=== PATIENT | female | born 1970 | race American Indian/Alaskan Native ===

== ENCOUNTER 2017-02-25 09:28 | Emergency (ER) | payer OTHER ==
[2017-02-25] MEDS ORDERED: Sodium Chloride 0.9% 1,000 ML IV STA (09:35)
--- NOTE | 2017-02-25 09:37 | ED PDOC ---
Arrival/HPI - General Time Seen by Provider: 02/25/17 09:31 - History of Present Illness Narrative History of Present Illness (Text): 47 y/o F c PMHx DM p/w syncope just prior to ED arrival. 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 States she had eaten and drank normally today and had taken her DM medication. Classmate went to get professor and upon his return, patient was slumped over on table unresponsive. Rapid response team was called and brought patient down to ED for further evaluation. Patient drowsy but awake upon ED arrival. Patient denies chest pain or shortness of breath. Full ROS/HPI unobtainable due to patient condition. Family/Social History Family/Social History: No Known Family HX Allergies/Home Meds Allergies/Adverse Reactions: Allergies Penicillins Allergy (Verified 02/25/17 09:33) Home Medications: Home Meds Medication Instructions Recorded Confirmed Glipizide [Glipizide ER] 10 mg PO DAILY 02/25/17 02/25/17 Lisinopril [Zestril] 10 mg PO DAILY 02/25/17 02/25/17 Metoprolol Succinate [Metoprolol 100 mg PO DAILY 02/25/17 02/25/17 Succinate] amLODIPine [Norvasc] 5 mg PO DAILY 02/25/17 02/25/17 metFORMIN [glucOPHAGE] 500 mg PO BID 02/25/17 02/25/17 Review of Systems - Review of Systems Systems not reviewed;Unavailable: Altered Mental Status Physical Exam - Physical Exam Narrative Physical Exam (Text): Constitutional: No acute distress. Drowsy. Head: Normocephalic. Atraumatic. Eyes: PERRL. ENT: Moist mucous membranes. Neck: Supple. Cardiovascular: Regular rate. Chest: No tenderness. Respiratory: Clear to auscultation bilaterally. GI: Soft. Nontender. Nondistended. Back: No CVA tenderness. Musculoskeletal: No tenderness or swelling of extremities. Skin: No rash. Neurologic: Alert, no focal deficit. Vital Signs Temp Pulse Resp BP Pulse Ox 02/25/17 14:21 98.0 F 74 18 140/74 97 02/25/17 09:34 98 F 87 16 157/99 H 100 Medical Decision Making ED Course and Treatment: Fingerstick 420. Impression: 47 y/o F c uncontrolled DM p/w syncope. Will evaluate for DKA, arrhythmia, ischemia, dehydration. EKG NSR 90 bpm, PVCs, no ST elevations 02/25/17 10:18 Patient much more awake and alert. States has had UTI symptoms for last week, not on medication. She also states the dizziness she was having prior to syncope was like a spinning sensation. FTN, HTS normal. Reproducible vertigo with [place] Hallpike maneuver. L TM cerumen obstructing. R TM appears normal. No nystagmus. On reassessment, patient in no distress, would like to go home. No symptoms at this time. I recommended further observation, but patient declined. - Lab Interpretations Lab Results: 02/25/17 09:30 02/25/17 09:30 Lab Results 02/25/17 10:06: Urine Color Yellow, Urine Appearance Clear, Urine pH 6.0, Ur Specific [place] 1.010, Urine Protein Negative, Urine Glucose (UA) >=1000, Urine Ketones Negative, Urine Blood Negative, Urine Nitrate Negative, Urine Bilirubin Negative, Urine Urobilinogen 0.2, Ur Leukocyte Esterase Negative, Urine HCG, Qual Negative 02/25/17 09:30: pO2 54, VBG pH 7.33, VBG pCO2 54.0, VBG HCO3 28.5 H, VBG O2 Sat (Calc) 90.4 H, VBG Base Excess 1.5 02/25/17 09:30: Sodium 130 L, Potassium 4.4, Chloride 95 L, Carbon Dioxide 29, Anion Gap 11, BUN 12, Creatinine 0.8, Est GFR ( Amer) > 60, Est GFR (Non- Af Amer) > 60, Random Glucose 435 H*, Calcium 9.7, Total Bilirubin 0.5, AST 25, ALT 38, Alkaline Phosphatase 97, Total Creatine Kinase 209, Troponin I < 0.01, Total Protein 6.7, Albumin 3.8, Globulin 2.9, Albumin/Globulin Ratio 1.3, Lipase 174 02/25/17 09:30: WBC 5.5, RBC 4.42, Hgb 11.8 L, Hct 35.6 L, MCV 80.5, MCH 26.7, MCHC 33.1, RDW 14.1, Plt Count 287, MPV 10.7, Gran % 53.3, Lymph % (Auto) 38.9 H , [place] % (Auto) 5.6, Eos % (Auto) 2.0, Baso % (Auto) 0.2, Gran # 2.95, Lymph # 2.2, [place] # 0.3, Eos # 0.1, Baso # 0.01 - RAD Interpretation Radiology Orders: 02/25/17 09:35 CHEST PORTABLE [RAD] Stat - Medication Orders Current Medication Orders: Discontinued Medications Sodium Chloride (Sodium Chloride 0.9%) 1,000 mls @ 999 mls/hr IV .Q1H1M STA Stop: 02/25/17 10:35 Last Admin: 02/25/17 09:56 Dose: 999 mls/hr eMAR Start Stop Document 02/25/17 09:56 KK (Rec: 02/25/17 09:56 KK [id number]) Intravenous Solution Start Date 02/25/17 Start Time 09:30 Meclizine HCl (Antivert) 25 mg PO STAT STA Stop: 02/25/17 11:38 Last Admin: 02/25/17 11:54 Dose: 25 mg Disposition/Present on Arrival - Present on Arrival Any Indicators Present on Arrival: No - Disposition Have Diagnosis and Disposition been Completed?: Yes Diagnosis: Syncope, Vertigo, PVC (premature ventricular contraction) Disposition: AGAINST MEDICAL ADVICE Disposition Time: 12:06 Condition: STABLE Discharge Instructions (ExitCare): Syncope (ED), Benign Paroxysmal Positional Vertigo (ED), Premature Ventricular Contractions (ED) [facility] - Follow up with primary Forms: [employer] (Croatian) Against Medical Advice - AMA Patient Left Against Medical Advice: The patient declines admission to the hospital and wishes to leave the Emergency Department. This action is against my medical advice. This decision was made with informed refusal. The patient was told that admission to the hospital is necessary. Explanation of the reasons why were discussed. The risks of leaving were explained to the patient and include, but are not limited to, worsening of known or currently unknown conditions, permanent disability and from undiagnosed or untreated conditions. The patient has the capacity to make this informed decision and understands my explanation of the current medical problem and risks of leaving. The patient voluntarily accepts these risks and signed an AMA form documenting our conversation. The patient was given the opportunity to ask questions and reconsider. The patient was encouraged to return to the Emergency Department at any time for further care.
--- NOTE | 2017-02-25 09:43 | PCM.RRT ---
<Toni Raya - Last Filed: 02/25/17 09:50> [employer] Nurse Assessment - Situation Date: 02/25/17 Time [employer] was called: 09:13 [employer] Responder Arrival Time: 09:14 [employer] Location:: [address] [place] [address] [employer] Reason for Call: Change in Mental Status [employer] Called By: RN - IV IV Inserted during [employer]?: No - Respiratory Oxygen Delivery Method: Room Air Received Nebulizer Treatments:: No Was the Patient Ventilated with Bag/Mask 100% O2?: No Secretions Suctioned?: No Was the Patient Intubated?: No Was the Patient Placed on a Ventilator?: No - Diagnostic Test Ordered EKG: No (Deferred to ED) Chest X-Ray: No (Deferred to ED) CT Scan: No (Deferred to ED) CPR started during [employer]?: No - Vital Signs Vital Sign: BP: 175/114 HR: 95 O2 Sat: 99% - Jessica Coma Scale Coma Scale Eye Opening: To verbal stimuli Coma Scale Motor: Withdraw response to pain Coma Scale Verbal: No response - Vital Signs at end of [employer] Vital Signs at end of [employer]: Deferred to ED - Recommendations 5) [employer] Level of Care Recommendations: Discharge to Emergency Room Notifications: Attending Physician I.Reason for [employer] - A) Acute Change in Patient: (Select all that apply): Acute change in mental status - Neurological Status (Select all that apply): Lethargic, Weakness - Respiratory Oxygen Delivery Method: Room Air - Constitutional Appears: No Acute Distress - Head Head Exam: ATRAUMATIC, NORMOCEPHALIC - Eyes Eye Exam: PERRL - Respiratory Exam Respiratory Exam: Clear to Ausculation Bilateral. absent: Rales, Wheezes - Cardiovascular Exam Cardiovascular Exam: REGULAR RHYTHM, RRR, +S1, +S2 - GI/Abdominal Exam GI & Abdominal Exam: Soft, Normal Bowel Sounds. absent: Tenderness - Neurological Exam Neurological Exam: Alert, Altered - Extremities Exam Extremities Exam: absent: Calf Tenderness, Pedal Edema Plan - Assessment of Findings&Treatment Plan [employer] Called: 9:13am Pt was seen and examined on [address] [place] [address]. Pt was found on the chair leaning on a table unresponsive not obeying any commands. 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 Pt does have a history of diabetes. As per nurses pt did not fall or hit her head. ROS unobtainable. Pt was hemodynamically stable. Blood sugar of >400. Pt was transferred to a bed/stretcher and sent to the ED. Pt started opening her eyes and becoming more arousable. She was signed out to Dr LOPEZ and nursing staff in the ED for full workup - Blood work and Imaging. Will follow up. [facility] PGY-2 <Jordan Kaplan - Last Filed: 02/25/17 16:30> Attending/Attestation - Attestation I have personally seen and examined this patient.: Yes I have fully participated in the care of the patient.: Yes I have reviewed all pertinent clinical information, including history, physical exam and plan: Yes Notes (Text): 02/25/17 16:28 Attending note; Patient was seen in the 5 th floor after rapid response was called. Patient was feeling dizzy initially and then passed out briefly. Patient's blood sugar was over 400. Blood pressure was 144/80. Patient is alert and awake but lethargic. Able to nod her head with yes or No Answer. Moving all the extremities. The patient was transferred to the ER. Case endorsed to ER attending. Further workup per ER. Resident accompanied the patient to the ER. Currently stable vitals.
[2017-02-25 09:49] LABS: BASO # 0.01 K/mm3 (0.0-2.0); BASO % 0.2 % (0.0-3.0); EOS # 0.1 (0.0-0.7); GRAN # 2.95 (1.4-6.5); GRAN % 53.3 % (50.0-68.0); HEMATOCRIT 35.6 % (36.0-48.0); LYMPH # 2.2 (1.2-3.4); LYMPH % 38.9 % (22.0-35.0); MEAN CELL VOLUME 80.5 fl (80.0-105.0); MEAN CORPUSCULAR HEMOGLOBIN 26.7 pg (25.0-35.0); MEAN CORPUSCULAR HGB CONC 33.1 g/dl (31.0-37.0); MEAN PLATELET VOLUME 10.7 fl (7.0-11.0); MONO # 0.3 (0.1-0.6); MONO % 5.6 % (1.0-6.0); RED CELL DISTRIBUTION WIDTH 14.1 % (11.5-14.5); WHITE BLOOD COUNT 5.5 10^3/ul (4.5-11.0)
[2017-02-25 09:52] LABS: VENOUS BLOOD GAS BASE EXCESS 1.5 mmol/L (0.0-2.0); VENOUS BLOOD PH 7.33 (7.32-7.43)
[2017-02-25 10:13] LABS: TROPONIN I < 0.01 ng/mL
[2017-02-25 10:14] LABS: URINE BILIRUBIN NEGATIVE (NEGATIVE); URINE BLOOD NEGATIVE (NEGATIVE); URINE GLUCOSE (UA) >=1000 mg/dL (NEGATIVE); URINE KETONE NEGATIVE (NEGATIVE); URINE LEUKOCYTE ESTERASE NEGATIVE Leu/uL (NEGATIVE); URINE PROTEIN NEGATIVE mg/dL (<30 mg/dL); URINE UROBILINOGEN 0.2 E.U./dL (<1 E.U./dL)
[2017-02-25 10:19] LABS: GLUCOSE,RANDOM 435 mg/dL (70-110)
[2017-02-25 10:25] LABS: ALB/GLOB RATIO 1.3 (1.1-1.8); ALKALINE PHOSPHATASE 97 U/L (38-126); ALT/SGPT 38 U/L (7-56); AST/SGOT 25 U/L (14-36); BILIRUBIN,TOTAL 0.5 mg/dL (0.2-1.3); BLOOD UREA NITROGEN 12 mg/dL (7-21); CALCIUM 9.7 mg/dL (8.4-10.5); CARBON DIOXIDE 29 mmol/L (21-33); CHLORIDE 95 mmol/L (98-107); GFR AFRICAN-AMERICAN > 60; LIPASE 174 U/L (23-300); POTASSIUM 4.4 mmol/L (3.6-5.0); SODIUM 130 mmol/L (132-148); TOTAL PROTEIN 6.7 g/dL (5.8-8.3)
[2017-02-25 10:27] LABS: URINE APPEARANCE CLEAR (CLEAR); URINE COLOR YELLOW (YELLOW)
--- NOTE | 2017-02-25 14:02 | RAD ---
HISTORY: Syncope, hyperglycemia. Portable semi erect study 11:20. COMPARISON: No prior. FINDINGS: LUNGS: No active pulmonary disease. PLEURA: No significant pleural effusion identified, no pneumothorax apparent. CARDIOVASCULAR: Normal. OSSEOUS STRUCTURES: No significant abnormalities. VISUALIZED UPPER ABDOMEN: Normal. OTHER FINDINGS: None. IMPRESSION: No active disease.
[2017-02-25 14:22] VITALS: BP 140/74; PULSE 74; RESP 18; TEMP 98; O2SAT 97
--- NOTE | 2017-02-25 23:08 | CARD ---
APPROVED REPORT EKG Measurement Heart [id number] <Conclusion> Sinus rhythm with occasional premature ventricular complexes Otherwise normal ECG
== END 2017-02-25 12:30 | disposition left against medical advice (07) ==
LOC: ED 09:28
DX: I49.3 Ventricular premature depolarization (principal); R55 Syncope and collapse; H81.10 Benign paroxysmal vertigo, unspecified ear
CPT/HCPCS: 71010; 80053; 81003; 82550; 82803; 83690; 84484; 84703; 85025; 93005; 99284; J7040